=== PATIENT | male | born 1970 | race African-American/Black ===

== ENCOUNTER 2019-12-22 14:57 | Emergency (ER) | payer BC ==
[~2019-12-22] VITALS: Ht 180.3 cm; Wt 108.0 kg
[~2019-12-22 14:57] MED LIST: KEFLEX500 MG PO; MOTRIN800 MG PO
[2019-12-22] MEDS ORDERED: NAPROSYN500 MG PO (18:25)
[2019-12-22] MEDS ORDERED: TYLENOL325 M1 PO (18:25)
== END 2019-12-22 19:15 | disposition home or self-care (01) ==
LOC: ED 14:57
DX: S81.822A Laceration with foreign body, left lower leg, initial encounter (principal); R56.9 Unspecified convulsions; F17.200 Nicotine dependence, unspecified, uncomplicated; Z88.0 Allergy status to penicillin; V86.99XA Unspecified occupant of other special all-terrain or other off-road motor vehicle injured in nontraffic accident, initial encounter; Y93.89 Activity, other specified; Y92.89 Other specified places as the place of occurrence of the external cause; Y99.8 Other external cause status

== ENCOUNTER 2022-06-11 20:09 | Emergency (ER) | payer OTHER, BC ==
[~2022-06-11] VITALS: Ht 180.3 cm; Wt 98.0 kg
[~2022-06-11 20:09] MED LIST changes: +NAPROSYN500 MG PO; +TYLENOL325 M1 PO
[2022-06-11] MEDS ORDERED: NAPROSYN500 MG PO (21:37)
== END 2022-06-11 21:59 | disposition home or self-care (01) ==
LOC: ED 20:09
DX: R20.0 Anesthesia of skin (principal); R20.2 Paresthesia of skin; Z88.0 Allergy status to penicillin; V89.2XXA Person injured in unspecified motor-vehicle accident, traffic, initial encounter; Y93.89 Activity, other specified; Y92.410 Unspecified street and highway as the place of occurrence of the external cause; Y99.8 Other external cause status